=== PATIENT | female | born 1935 | race Caucasian/White ===

== ENCOUNTER 2016-09-27 15:21 | Inpatient (IN) ==
--- NOTE | 2016-09-27 15:39 | Diag Imaging Result Doc PS360 ---
EXAM: HEAD W/O CONTRAST HISTORY: brain attack protocol TECHNIQUE: CT of the head without contrast COMMENT: There is abnormal lucency in the cortex and subcortical white matter around the anterior operculum and posterior frontal lobe on the left. This extends into the insular region both in the cortex and external capsule. No evidence of bleed or abnormal extra-axial fluid collection is present. There is some hyperechoic density of branches of the middle cerebral artery in the sylvian fissure on the left. 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 Electronically signed by Perfecto Rios 09/27/2016 3:37 PM
[2016-09-27] MEDS ORDERED: NS 1,000 ML ONE (15:47)
[2016-09-27] MEDS: NS 1,000 ML IV PRN ×2 (16:00→18:12)
--- NOTE | 2016-09-27 16:04 | Diag Imaging Result Doc PS360 ---
EXAM: CHEST-PORTABLE HISTORY: stroke like symptoms TECHNIQUE: Portable upright at 1600 COMMENT: There is apparent atelectasis in the right lower lobe which was not present on 07/10/2014. Otherwise considering differences in technique there is been no significant change. IMPRESSION: Right lower lobe subsegmental atelectasis. Electronically signed by Perfecto Rios 09/27/2016 4:02 PM
[2016-09-27 16:25] LABS: BASO% 0.1 % (0.0-0.8); EOS# 0.01 X1000 (0.0-0.7); EOS% 0.1 % (0.0-10.0); HEMATOCRIT 44.3 % (37.0-47.0); HEMOGLOBIN 15.2 g/dL (12.0-16.0); LYMPH# 1.14 X1000 (1.2-3.4); LYMPH% 9.6 % (20.5-51.1); MANUAL DIFF NEEDED? NO; MCH 30.5 PG (27-31); MCHC 34.3 g/dL (33-37); MONO# 0.45 X1000 (0.11-0.59); MONO% 3.8 % (1.7-9.3); MPV 10.7 FL (7.4-10.4); NEUT% 86.4 % (42.2-75.2); PLT 302 X1000 (130-400); RBC 4.98 XMIL (4.2-5.4)
--- NOTE | 2016-09-27 16:27 | EKG Report ---
Test Performed on : 09/27/2016 3:43:27 PM Test Reason : Stroke like symptoms Blood Pressure : / mmHG Vent. Rate : 077 BPM Atrial Rate : 000 BPM P-R Int : 000 ms QRS Dur : 058 ms QT Int : 400 ms P-R-T Axes : 000 060 054 degrees QTc Int : 452 ms Atrial fibrillation. with premature ventricular or aberrantly conducted complexes. Septal infarct , age undetermined Abnormal ECG When compared with ECG of 04-MAY-2010 12:19, Atrial fibrillation. has replaced Sinus rhythm. Septal infarct is now present Unconfirmed Result
[2016-09-27 16:36] LABS: AGAP 14; ALBUMIN 4.4 g/dL (3.5-5.0); ALKALINE PHOSPHATASE 102 U/L (32-104); BUN 13 mg/dL (8-22); CALCIUM 9.5 mg/dL (8.8-10.2); CHLORIDE 99 mmol/L (98-107); COSMO 282; GOT 31 U/L (10-30); GPT 31 U/L (10-36); POTASSIUM 3.7 mmol/L (3.5-5.1); SODIUM 140 mmol/L (136-145); TCO2 27 mmol/L (25-35); TOTAL BILIRUBIN 0.77 mg/dL (0.20-1.00); TOTAL PROTEIN 7.9 g/dL (6.3-8.3)
[2016-09-27 16:37] LABS: INR 1.04; PTT 28.5 Seconds (22.0-36.0)
--- NOTE | 2016-09-27 17:11 | PROVIDER DOCUMENTATION ---
This chart was entered by Devante Kirk Scribe, acting as scribe for Laura Hoover MD. HPI-Neurological Disorder - General Stated Complaint: stoke like sx Time Seen by Provider: 09/27/16 15:30 Source: family Unable to obtain history due to:: urgency Allergies/Adverse Reactions: Patient Allergies Allergy/AdvReac Type Severity Reaction Status Date / Time Latex, Natural Rubber Allergy Unknown Verified 09/27/16 17:05 shellfish derived Allergy ANAPHYLAXIS Verified 09/27/16 17:05 shrimp Allergy ANAPHYLAXIS Verified 09/27/16 17:05 Sulfa (Sulfonamide Allergy Unknown Verified 09/27/16 17:05 Antibiotics) - History of Present Illness-Neuro Nature of Presenting Problem: patient is a 81 yo F that presents with stroke like symptoms. Onset unknown. last known time she was normal was 330pm yesterday. patient has right sided facial droop, right sided weakness, and is aphasic. patient hasn't had recent injury. history limited due to condition and urgency Severity: reports: severe Onset/Duration: reports: unsure, this morning Timing: reports: still present, constant Context: reports: impaired speech, paresthesia, facial droop Character of Altered Mental Status: reports: N/A Any recent trauma/injury?: reports: none Character of Deficits: reports: new weakness, impaired speech New weakness or altered sensation location:: reports: LUE, LLE, left facial Cognitive Baseline: alert, oriented x3 Gait Baseline: walks without assistance Associated Symptoms: reports: paresthesia, slurred speech, weakness. denies: headache, insomnia, nausea, trouble walking, vomiting Similar Symptoms Previously?: No Recently seen or treated by another doctor?: No Review of Systems - Adult - REVIEW OF SYSTEMS - ADULT Constitutional: denies: chills, fever Eyes: denies: decreased vision, blurred vision, double vision Ears, Nose, Mouth & Throat: denies: ear pain, sinus problem, throat pain, throat swelling Cardiovascular: denies: chest pain, edema, palpitations, syncope Respiratory: denies: chronic cough, cough, shortness of breath, wheezing Gastrointestinal: denies: abdominal pain, nausea, vomiting Genitourinary: denies: dysuria, frequency, hematuria Musculoskeletal: denies: back pain, joint pain, neck pain Integumentary: reports: no symptoms reported Neurological: reports: numbness, paresthesia, slurred speech. denies: dizziness /vertigo, headache/migraines, syncope Psychiatric: reports: no symptoms reported Endocrine: reports: no symptoms reported Hematologic/Lymphatic: reports: no symptoms reported Allergic/Immunologic: reports: no symptoms reported All Other Systems: Reviewed and Negative Past History - Adult - PAST MEDICAL HISTORY-ADULT Review of Records: reports: Old Records Reviewed, Nursing Assessment Review, Medications Reviewed Cardiovascular: reports: HTN Endocrine/Immune: reports: thyroid disorder - PRIOR SURGERIES/PROCEDURES Surgical/Procedure History: reports: none - IMMUNIZATION STATUS Childhood Immunizations: See Nurse Assessment Flu Vaccine: See Nurse Assessment - FAMILY HISTORY Family History: reviewed, not pertinent - SOCIAL HISTORY Smoking: non-smoker Living Situation: family Physical Exam- Neurological - Physical Exam-Neuro Exam Limited by: condition Initial Vital Signs Reviewed: Yes General Appearance: alert, mild distress, moderate distress Eye Exam: bilateral eye: normal inspection, PERRL HENMT: normocephalic/atraumatic, moist mucous membranes, normal ENT inspection Head Injury: no evidence of injury. 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 negative: gaze palsy, tongue deviation to R, tongue deviation to L Motor/Sensory: pronator drift (R), weak motor strength RUE, weak motor strength RLE Neurologic: aphasia, facial droop, motor weakness (right sided) Integumentary: normal color, warm/dry Psych/Mental Status: normal mood/affect, normal thought content, normal thought process, oriented x 3 Progress - PLAN OF CARE/RESULTS Progress/Plan/Lab Results: Vital Signs - 8 hr 09/27/16 15:57 09/27/16 16:31 Pulse Rate 78 84 Respiratory Rate 12 22 Blood Pressure 134/110 167/133 O2 Sat by Pulse Oximetry 100 99 Laboratory Results - last 24 hr 09/27/16 09/27/16 09/27/16 16:00 16:00 16:00 WBC 11.92 H RBC 4.98 Hgb 15.2 Hct 44.3 MCV 89.0 MCH 30.5 MCHC 34.3 RDW Std Deviation 14.1 Plt Count 302 MPV 10.7 H Immature Gran % (Auto) 0.0 Neut % (Auto) 86.4 H Lymph % (Auto) 9.6 L Elbert % (Auto) 3.8 Eos % (Auto) 0.1 Baso % (Auto) 0.1 Immature Gran # (Auto) 0.00 Neut # (Auto) 10.31 H Lymph # (Auto) 1.14 L Elbert # (Auto) 0.45 Eos # (Auto) 0.01 Baso # (Auto) 0.01 PT 11.0 INR 1.04 PTT (Actin FS) 28.5 Sodium 140 Potassium 3.7 Chloride 99 Carbon Dioxide 27 Anion Gap 14 BUN 13 Creatinine 0.8 Estimated GFR/1.73 m2 > 60 BUN/Creatinine Ratio 16 Glucose 139 H Calculated Osmolality 282 Calcium 9.5 Total Bilirubin 0.77 AST 31 H ALT 31 Alkaline Phosphatase 102 Troponin T Total Protein 7.9 Albumin 4.4 Globulin 3.5 Albumin/Globulin Ratio 1.3 09/27/16 16:00 WBC RBC Hgb Hct MCV MCH MCHC RDW Std Deviation Plt Count MPV Immature Gran % (Auto) Neut % (Auto) Lymph % (Auto) Elbert % (Auto) Eos % (Auto) Baso % (Auto) Immature Gran # (Auto) Neut # (Auto) Lymph # (Auto) Elbert # (Auto) Eos # (Auto) Baso # (Auto) PT INR PTT (Actin FS) Sodium Potassium Chloride Carbon Dioxide Anion Gap BUN Creatinine Estimated GFR/1.73 m2 BUN/Creatinine Ratio Glucose Calculated Osmolality Calcium Total Bilirubin AST ALT Alkaline Phosphatase Troponin T < 0.010 Total Protein Albumin Globulin Albumin/Globulin Ratio Orders Category Date Time Status Cardiac Monitoring DIRECTED Care 09/27/16 15:46 Active Finger Stick Blood Sugar (ED) DIRECTED Care 09/27/16 15:46 Active Misc. NRSG Communication Order DIRECTED Care 09/27/16 15:46 Active Oxygen Therapy- ED Nursing DIRECTED Care 09/27/16 15:46 Active Resuscitation Status Routine Care 09/27/16 16:50 Ordered Saline Loc NOW Care 09/27/16 15:46 Active CHEST-PORTABLE [RAD] Stat Exams 09/27/16 15:46 Completed HEAD W/O CONTRAST [CT] Stat Exams 09/27/16 15:22 Completed CBC WITH ELECTRONIC DIFF [HEME] Stat Lab 09/27/16 16:00 Completed COMPREHENSIVE METABOLIC PANEL [CHEM] Stat Lab 09/27/16 16:00 Completed PROTIME WITH INR [COAG] Stat Lab 09/27/16 16:00 Completed PTT [COAG] Stat Lab 09/27/16 16:00 Completed TROPONIN T Stat Lab 09/27/16 16:00 Completed URINALYSIS W/POSS RFLX CULT-1 [URINALYSIS] Stat Lab 09/27/16 15:46 Uncollected URINE DRUG SCREEN Stat Lab 09/27/16 15:46 Uncollected 0.9% Sodium Chloride Inj [Ns] 1,000 ml Med 09/27/16 15:47 Discontinued .ROUTE As Directed 0.9% Sodium Chloride Inj [Ns] 1,000 ml Med 09/27/16 15:46 Active IV 125 mls/hr EKG [EKG] Stat Ther 09/27/16 15:46 Draft Transfer/Admit Order [TRANSFER] Routine Transfer 09/27/16 16:49 Ordered Vital Signs Pulse Resp BP Pulse Ox 09/27/16 16:31 84 22 167/133 99 09/27/16 15:57 78 12 134/110 100 Latex, Natural Rubber Allergy (Verified 09/27/16 17:05) Unknown shellfish derived Allergy (Verified 09/27/16 17:05) ANAPHYLAXIS shrimp Allergy (Verified 09/27/16 17:05) ANAPHYLAXIS Sulfa (Sulfonamide Antibiotics) Allergy (Verified 09/27/16 17:05) Unknown Laboratory 09/27/16 09/27/16 09/27/16 16:00 16:00 16:00 WBC RBC Hgb Hct MCV MCH MCHC RDW Std Deviation Plt Count MPV Immature Gran % (Auto) Neut % (Auto) Lymph % (Auto) Elbert % (Auto) Eos % (Auto) Baso % (Auto) Immature Gran # (Auto) Neut # (Auto) Lymph # (Auto) Elbert # (Auto) Eos # (Auto) Baso # (Auto) PT 11.0 INR 1.04 PTT (Actin FS) 28.5 Sodium 140 Potassium 3.7 Chloride 99 Carbon Dioxide 27 Anion Gap 14 BUN 13 Creatinine 0.8 Estimated GFR/1.73 m2 > 60 BUN/Creatinine Ratio 16 Glucose 139 H Calculated Osmolality 282 Calcium 9.5 Total Bilirubin 0.77 AST 31 H ALT 31 Alkaline Phosphatase 102 Troponin T < 0.010 Total Protein 7.9 Albumin 4.4 Globulin 3.5 Albumin/Globulin Ratio 1.3 09/27/16 16:00 WBC 11.92 H RBC 4.98 Hgb 15.2 Hct 44.3 MCV 89.0 MCH 30.5 MCHC 34.3 RDW Std Deviation 14.1 Plt Count 302 MPV 10.7 H Immature Gran % (Auto) 0.0 Neut % (Auto) 86.4 H Lymph % (Auto) 9.6 L Elbert % (Auto) 3.8 Eos % (Auto) 0.1 Baso % (Auto) 0.1 Immature Gran # (Auto) 0.00 Neut # (Auto) 10.31 H Lymph # (Auto) 1.14 L Elbert # (Auto) 0.45 Eos # (Auto) 0.01 Baso # (Auto) 0.01 PT INR PTT (Actin FS) Sodium Potassium Chloride Carbon Dioxide Anion Gap BUN Creatinine Estimated GFR/1.73 m2 BUN/Creatinine Ratio Glucose Calculated Osmolality Calcium Total Bilirubin AST ALT Alkaline Phosphatase Troponin T Total Protein Albumin Globulin Albumin/Globulin Ratio Result Diagrams: 09/27/16 16:00 09/27/16 16:00 - EKG 1 Time of EKG reading by physician:: 15:46 EKG Read and Signed by:: Laura Hoover EKG Interpretation (*Must complete 3 of following elements*): Abnormal Rate: 77 Rhythm: a-fib with pvcs QRS: normal ST Wave: non-specific ST changes Prior EKG Comparison: changes noted - CT/MRI 1 CT Study: Head Impression: Abnormal CT Results: acute infarct in the distribution of l middle cerebral artery - CONSULTS/PCP/HOSPITALIST Notification #1 *Consult/PCP/Hospitalist*: Time Discussed: 16:48 Reason/Comments: CVA Consult Disposition: Will see in ED, Admit Departure - Departure Date of Disposition Decision: 09/27/16 Time of Disposition Decision: 16:49 DIAGNOSIS: New onset a-fib CVA (cerebral vascular accident) Qualifiers: CVA mechanism: unspecified Qualified Code(s): I63.9 - Cerebral infarction, unspecified Disposition: ADMITTED INPATIENT 09 Certified Medical Emergency: Emergent Condition: Stable - Critical Care Note This patient required my direct & personal management of CC.: Yes Total Time (mins): 40 Critical Care Statement: This patient required my direct personal management to treat or rule out processes, the absence of which, could potentiallly result in sudden, clinically significant life or limb threatening deterioration. Attestation - Physician/ FELICIA Attestation The physician spent face to face time with patient:: Yes Advanced Practice Provider documentation review:: Supervising physician onsite and consulted in the evaluation and care of this patient. The physician did have a face to face encounter with the patient. This chart was documented by the indicated scribe, (Devante Kirk, Scribe) and accurately reflects the services I performed and decisions made by me, Laura Hoover MD, as attested by the provider's signature.
[2016-09-27] MEDS ORDERED: APRESOLINE IV PRN (17:12)
--- NOTE | 2016-09-27 17:25 | HISTORY AND PHYSICAL ---
PAST MEDICAL HISTORY: Ms. Mckeon is an 81-year-old with a past medical history of: 1. Hypothyroidism. 2. Irritable bowel syndrome. 3. Hypertension. 4. History of pneumonia in the past. 5. Sinusitis. 6. Essential tremor. 7. Fatigue. 8. Hypercholesterolemia. 9. Myalgias. 10. Malignant neoplasm of the right breast. SURGICAL HISTORY: 1. Status post hysterectomy. 2. Breast biopsy. Fibrocystic breast changes, tenderness and mastitis. 3. Endarterectomy in 1984. 4. Right breast neoplasm. Lumpectomy done 04/23/2010. SOCIAL HISTORY: Born in [place], [place]. She has lived in [place] and [place] most of her life. She is a with 3 children, 1 son and 2 daughters. Denies any history of alcohol or tobacco use. FAMILY HISTORY: Father at age 85 from myocardial infarction. Mother at age 86 from coronary artery disease and CVA. Family history of hypertension and heart problems. HEALTH HISTORY: Had a colonoscopy, I think the last one was 2013. Bone density in 03/03/10. Mammogram 2013. Pap smear 2008. Hysterectomy, chest x-ray done in 2010. REVIEW OF SYSTEMS: General: She is unable to give, but the family says not noticing weight gain or loss. HEENT: Unremarkable. Respiratory: No increased work of breathing or dyspnea. Cardiovascular: No chest pain or tachy palpitation. GI: Unremarkable. : Unremarkable. Musculoskeletal/Neurologic: Had not noted any complaints. DISCUSSION: The story is that she usually gets up and makes a cup of coffee. They had noticed that the coffee was spilled. She was in a recliner and she was unable to communicate very well and so some time this morning I guess is when this event happened. She was brought here to the emergency room where she had right facial weakness, right shoulder, right upper and lower extremity weakness as well, about a 3/5 in the arm and maybe 3/5 in the leg. Her speech, she could formulate words, but it was slow and sometimes hard to understand. She seemed to have good understanding of what you are saying. She said she could swallow okay. Denied any pain. DIAGNOSTICS: On monitor EKG showed she is in atrial fibrillation with rate controlled. I did not see any ST-segment elevation or depression. Looking back, she had a nuclear bone scan back in 2014 which had increased in the right hip. Otherwise unremarkable. She had a bone densitometry in 08/05/2014, abnormal bone density measured in each hip T-score of -2.4. The right hip -1.5. I guess her T-score was -2.4. She did not fall. No history of head trauma. She had a CT of her head done without contrast: Acute infarct in distribution of left middle cerebral artery. Abnormal lucency in the cortex and the subcortical white matter around the anterior operculum and posterior frontal lobe on the left. This extends to the insular region, both in the cortex and the external capsule. No evidence of bleed or abnormal extra-axial fluid collection is present. Her chest x-ray, right lower lobe submental atelectasis. Her laboratory, white count 11,920, hematocrit 44, platelet count 302,000. Chemistry: Sodium 140, potassium 3.7, chloride 99, bicarb 27, BUN 13, creatinine 0.8, calcium 9.5, AST 31, ALT was 31. ASSESSMENT AND PLAN: 1. 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 It sounds like we may be getting some improvement. We will watch her blood pressures. Now is not the time to lower pressure too much, so we will try to keep her blood pressures above 150 systolic. We will make sure she is on aspirin and consider adding Plavix and get more of a history. We will check noninvasive carotid studies and echocardiogram. Put her on a monitor. She is in atrial fibrillation so I do want check an echocardiogram and look for mural thrombus. She may end up having an transesophageal echo. We will ask Cardiology to get involved. 2. Essential tremor. Aware. 3. History of hypothyroidism, check T4 and TSH. 4. Irritable bowel syndrome. 5. Hypertension. 6. Hypercholesterolemia. 7. She has had a previous endarterectomy in 1984. 8. History of breast neoplasm. Lumpectomy done on 05/01. She is status post hysterectomy. cc: Mir Heath MD
[2016-09-27] MEDS: CARDIZEM PO SCH ×2 (18:31→22:54)
[2016-09-27] MEDS: ASPIRIN PO SCH (18:31)
--- NOTE | 2016-09-27 18:51 | Diag Imaging Result Doc PS360 ---
EXAM: HIP 1 VIEW RIGHT HISTORY: bruising, ? fall, cva TECHNIQUE: AP portable at 1825 COMMENT: There is severe erosive arthritis which has worsened since the previous study of 07/25/2014. There is baav-ax-dyog contact, sob subchondral cyst formation and some lateral subluxation of the femoral head with respect to the acetabulum. IMPRESSION: Severe erosive osteoarthritis. Electronically signed by Perfecto Rios 09/27/2016 6:49 PM
[2016-09-27] MEDS ORDERED: LIPITOR PO SCH (21:00)
[2016-09-27 21:49] LABS: URINE MICRO REVIEW NEEDED? NO; URINE SOURCE CLEAN CATCH
[2016-09-27 21:53] LABS: BILIRUBIN URINE NEGATIVE (NEGATIVE); BLOOD URINE NEGATIVE (NEGATIVE); COLOR YELLOW; GLUCOSE URINE NEGATIVE (NEGATIVE); LEUKOCYTES URINE TRACE (NEGATIVE); NITRITE URINE NEGATIVE (NEGATIVE); PROTEIN URINE NEGATIVE (NEGATIVE); TURBIDITY URINE CLEAR (CLEAR); UR EPITHELIAL CELLS <10 /HPF (<10); URINE BACTERIA NEGATIVE /HPF; URINE CULTURE NEEDED? YES; URINE RBC <10 /HPF (<10); URINE WBC <10 /HPF (<10); UROBILINOGEN URINE NORMAL (NORMAL)
[2016-09-27 22:02] LABS: UR AMPHETAMINES QUAL NONE DETECTED (NONE DETECT); UR BARBITUATES QUAL NONE DETECTED (NONE DETECT); UR BENZODIAZEPIN QUAL NONE DETECTED (NONE DETECT); UR CANNABINOIDS QUAL NONE DETECTED (NONE DETECT); UR COCAINE QUAL NONE DETECTED (NONE DETECT); UR METHADONE QUAL NONE DETECTED (NONE DETECT); UR OPIATES QUAL NONE DETECTED (NONE DETECT); UR OXYCODONE QUAL NONE DETECTED (NONE DETECT); UR PCP QUAL NONE DETECTED (NONE DETECT)
[2016-09-28] MEDS: CARDIZEM PO SCH (06:13)
[2016-09-28] MEDS ORDERED: PLAVIX PO SCH (09:15)
--- NOTE | 2016-09-28 09:36 | PROGRESS NOTE ---
DATE: 09/28/2016 SUBJECTIVE: Mr. Mckeon had an uneventful night. Speech, she is not able to communicate words. She does appear to have understanding of what you are saying to her. 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 Left leg is weak. She does not appear to be in any distress or pain. Remains afebrile. PHYSICAL EXAMINATION: Vital Signs: Temperature 97.6 degrees, pulse 68, respirations 20, blood pressure today was 98/60 so we have had 98-159/60. I am going to stop her Cardizem and Apresoline. Lungs: Are clear in all lung roberts. Cardiovascular Examination: Regular rhythm and rate without murmur or S3. Abdomen: Soft. Skin: Is warm and dry. Is and Os: Urine output 1100 mL. LAB: White count 11,920, hematocrit 44, platelet count 302,000. Sodium 140, potassium 3.7, chloride 99, BUN 13, creatinine 0.8, blood sugar 182 and 139. ASSESSMENT AND PLAN: 1. Left-sided cortical cerebrovascular accident. We found a left 100% carotid. I have discussed with the vascular surgery. Not sure if there is anything surgical that can be offered at this point because it is 100%. Also at this point, not sure what anticoagulant. We will see what Dr. Isbell suggests. We will continue the aspirin. 2. Essential tremor. 3. History of hypothyroidism. 4. Irritable bowel syndrome. 5. Hypertension. 6. Hypercholesterolemia. 7. She has had endarterectomy in 1984 on the right side. We need to tolerate a little higher systolic blood pressure. I am going to stop her Cardizem. We are going to begin physical therapy and speech therapy. Continue fluids at the present time at 125 an hour. cc: Mir Heath MD
[2016-09-28] MEDS: ASPIRIN PO SCH (10:11)
--- NOTE | 2016-09-28 11:40 | Diag Imaging Result Doc PS360 ---
EXAM: HEAD W/O CONTRAST TECHNIQUE: Dose reduction protocol was used. INDICATION: stroke like event COMPARISON: 09/27/2016 FINDINGS: There is a known acute infarct involving the left frontal lobe. It has expectedly become more conspicuous and well-defined since yesterday's study. There is mild sulcal effacement surrounding the infarct related to edema. There is no hydrocephalus and there is no evidence of midline shift, ventricular effacement, or cisternal effacement. During the interval, the right MCA has become hyperdense. Although there are no new parenchymal changes on the right, this is suspicious for acute thrombus in the right MCA causing a right MCA distribution hyperacute infarct that is not yet detectable by CT. There is no discrete intracranial mass, mass effect, or intracranial hemorrhage. The surrounding soft tissues and bony structures are essentially unremarkable. IMPRESSION: 1.Interval evolution of the known left frontal lobe acute infarct. 2.Interval development of a hyperdense right MCA. This is concerning for a hyperacute right MCA distribution infarct with no detectable parenchymal changes by CT as of yet. The findings were discussed with Jaz Brasher MD at 09/28/2016 11:25 AM. Electronically signed by Naun Arroyo 09/28/2016 11:38 AM
--- NOTE | 2016-09-28 11:45 | CONSULTATION ---
DATE OF CONSULTATION: 09/28/2016 REASON FOR CONSULTATION: Complete occlusion of left carotid artery. HISTORY OF PRESENT ILLNESS: This is an 81-year-old female with past medical history of hypothyroidism, irritable bowel, hypertension, essential tremor, fatigue, hypercholesterolemia, myalgia, right breast cancer, who is status post carotid endarterectomy on the right side in 1984, now presenting with stroke-like symptoms. She was admitted and had a CT scan that confirmed that she had stroke-like symptoms and CT showed a stroke on the left side. She did have a carotid ultrasound done this morning that showed a complete occlusion on the left side. I was asked to evaluate the patient for this carotid disease. The patient is nonverbal, so we got most of her medical history from previously dictated notes including the one dictated by Dr. Heath on 09/27/2016. PAST MEDICAL HISTORY: Hypothyroidism, irritable bowel, hypertension, history of pneumonia, sinusitis, essential tremor, fatigue, hypercholesterolemia, myalgias, malignant neoplasm of the right breast. PAST SURGICAL HISTORY: Previous hysterectomy, breast biopsy, carotid endarterectomy and right breast lumpectomy. FAMILY HISTORY: Positive for heart attack and stroke. SOCIAL HISTORY: Denies alcohol, tobacco or illicit drugs. MEDICATIONS: Current MAR reviewed. ALLERGIES: Latex, shellfish, shrimp. REVIEW OF SYSTEMS: Unable to obtain secondary to the patient's mental status. PHYSICAL EXAMINATION: Vital signs: The patient is currently afebrile. Her vital signs are stable. General: No acute distress but a nonverbal female who looks stated age. HEENT: Normocephalic, although she has some right-sided facial droop. Oropharynx benign. Neck supple. Trachea midline. Cardiovascular: Irregularly irregular, consistent with atrial fibrillation. Lungs: Clear. Abdomen: Soft, nontender and nondistended. Extremities: She is able to move the left side. I do not see much movement on the right side. Neurologic: As stated above. Deficits noted on the right side. Vascular: Lower extremities perfused. Skin: No signs of jaundice. DIAGNOSTIC DATA: Reviewed from yesterday. Carotid ultrasound reviewed with mechanical design technician. 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 1. Multiple medical comorbidities, at this time being managed by the Hospitalist Service. 2. New onset of atrial fibrillation. At this time there is a discussion between Cardiology, hospitalist and Neurology about the best anticoagulation method and strategy given her atrial fibrillation. I will defer to them for those discussions. 3. Left-sided stroke secondary to 100% occluded left carotid artery. At this time, since it is 100% occluded, I cannot do anything surgically and recommend continued medical management and watch. She is a patient of Dr. Rivera. I recommend having her follow up with Dr. Rivera in the near future once she is discharged. This was all discussed with the family. cc: MD Mir Meyers MD
--- NOTE | 2016-09-28 12:25 | PROGRESS NOTE ---
DATE: 09/28/2016 SUBJECTIVE: Ms. Mckeon started having nausea and became less responsive with agonal breathing, noticed the right pupil was about 3 mm, the left pupil was down to 1 mm. Both were very sluggishly reactive, unresponsive, she does respond to some pain. She had a CT scan, and it indicated distant to the left cortical, she had right mid carotid clot and so suspect she has had a right-sided CVA as well. OBJECTIVE: Blood pressure was 142/101, pulse 116, respirations 25. Lungs: She was having trouble with agonal breathing. Her tongue was sticking out of her mouth. ASSESSMENT AND PLAN: I have told the family this is a very ominous change of events and she has extended her infarct and that prognosis is very poor. They want comfort measures. We will pursue that. She will be no code level 1. Fluids going at 125 mL an hour. cc: Mir Heath MD
[2016-09-28] MEDS: NS 1,000 ML IV PRN ×2 (12:28→20:04)
--- NOTE | 2016-09-28 14:27 | CONSULTATION ---
DATE OF CONSULTATION: 09/28/2016 REQUESTING PHYSICIAN: Mir Heath MD REASON FOR CONSULTATION: Atrial fibrillation, stroke. HISTORY OF PRESENT ILLNESS: This patient is an 81-year-old female who was brought to the hospital by her family on 09/27/2016. Apparently, she was found at home being unable to communicate fully. They suspected upon initial encounter that she had had a stroke and was brought immediately to the ER. In the ER, they did standard testing including CT scan of the head that showed initially an abnormality consistent with acute infarct in the distribution of the left middle cerebral artery. The patient at that time received an EKG that showed atrial fibrillation with no acute ischemic changes. The patient was admitted to the hospital for further observation. A carotid ultrasound was done early in the morning today, around 7 o'clock. The study shows what appears to be acute occlusion of the left internal carotid artery. The patient was being examined in the room by our ICING MACHINE OPERATOR and the neurologist, and the patient developed acute changes in mental status, became unresponsive. They have repeated the CT scan of the head at 11 a.m. and that study shows a hyperdense right middle cerebral artery concerning for hyperacute right middle cerebral artery infarct in addition to a left frontal lobe acute infarct. The patient at this time is unresponsive. Family is at the bedside. According to family, she has no prior history of atrial fibrillation or any major heart disease. PAST HISTORY: Positive for hypothyroidism, irritable bowel syndrome, hypertension, essential tremors, hyperlipidemia, and breast cancer. PAST SURGICAL HISTORY: She had carotid endarterectomy on the right side in 1984, lumpectomy in 2010, and hysterectomy. SOCIAL HISTORY: She is . She is retired. She has 3 grown-up children. Lives by herself. Not a smoker and not a drinker. FAMILY HISTORY: Father had myocardial infarction. Mother had a stroke, at the age of 86. ALLERGIES: She is allergic to latex, shellfish, shrimp, and sulfa drugs. HOME MEDICATIONS: Include aspirin 81, calcium carbonate 1 tablet daily, amlodipine 5 daily, metoprolol 25 twice a day, meloxicam 15 mg daily, levothyroxine 75 mcg daily. REVIEW OF SYSTEMS: At this time, not obtainable. The patient is really comatose at this point. PHYSICAL EXAMINATION: VITAL SIGNS: Blood pressure 142/101, temperature 97.4, pulse 116, respirations 25. GENERAL: She is unresponsive. NECK: Diminished pulses in the carotid vessels. Jugular veins do not appear to be distended. CHEST: Shows symmetrical breath sounds. No rales. HEART: Sounds are irregularly irregular. No gallop or murmur is noted. ABDOMEN: Nontender, soft. No masses or hepatomegaly. EXTREMITIES: Palpable pulses. No peripheral edema. NEUROLOGIC: She is unresponsive. She moves intermittently the right leg. No other obtainable findings. She is really unresponsive. LABORATORY: White count is 11,920. PT and PTT normal. Sodium 140, potassium 3.7, BUN 13, creatinine 0.8. Troponin is less than 0.10 and has been checked only once. Her lipid panel: HDL 53, LDL 87, total cholesterol 144, triglycerides 50. IMPRESSIONS: 1. Patient who presents with acute left middle cerebral artery infarct. While still in the process of being evaluated for this infarct, she has developed apparently a second infarct, this time on the right side, according to the CT scan of the head performed at 11 o'clock this morning. This probably corresponds to multiple cerebral emboli arising from atrial fibrillation. 2. Atrial fibrillation with controlled ventricular response. 3. History of hypertension. 4. 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 RECOMMENDATIONS: At this point in time, the patient's situation is very critical. We will focus our care on controlling her heart rate with beta eric and digoxin. Because of the acute stroke, we cannot fully anticoagulate the patient. Her prognosis at this point, if, indeed, we confirm that she has suffered a contralateral stroke, is really dismal. The patient may have to pursue comfort care and hospice type of services since the chances for recuperation will be minimal. Will follow her along. Thank you for the opportunity to participate in her evaluation. I may want to do a limited carotid ultrasound to document acute occlusion of the right side also. cc: MD Mir Lira MD
[2016-09-28] MEDS: OFIRMEV 1000 MG/ISOTONIC SOLN 1,000 MG/100 ML BOTTLE IV PRN (14:41)
--- NOTE | 2016-09-28 15:46 | CONSULTATION ---
DATE OF CONSULTATION: 09/28/2016 REASON FOR CONSULTATION: The patient is seen in consultation at the request of Dr. Heath for evaluation of stroke. HISTORY OF PRESENT ILLNESS: This is an 81-year-old, right-handed, female, history of hypertension, hyperlipidemia, breast cancer status post lumpectomy and radiation , admitted with acute left MCA ischemic stroke. The patient last seen or spoken to in a normal state was about 3 p.m. on Tuesday. Neighbor noted yesterday she had not opened blinds or gotten the paper, so she went to check on her and found her confused, unable to speak appropriately. There was a mess in the kitchen. She was taken to the emergency room. Head CT noted acute infarct in the distribution of the left MCA. The patient does apparently take an aspirin at home and has a history of a right carotid endarterectomy in the . No known heart disease. Since her admission there has been noted a new diagnosis of atrial fibrillation. Apparently, the preliminary read on the carotid Dopplers from Dr. Nair noted 100% blockage of the left carotid artery. The right carotid artery looked okay. Surgery had been consulted and there were no surgical plans given the 100% blockage. Cardiology has also been consulted for new onset atrial fibrillation and consideration for transesophageal echocardiogram. PAST MEDICAL HISTORY: Hypertension, hyperlipidemia, breast cancer, status post lumpectomy in 2010 with radiation and doing well, hypothyroidism, IBS, history of pneumonia, essential tremor, fatigue and myalgias, hysterectomy, endarterectomy in 1984 on the right side. SOCIAL HISTORY: The patient is active and lives alone. She drives. She has 3 children and is . No tobacco, alcohol, or illicit drugs. FAMILY HISTORY: Positive for stroke and heart disease. ALLERGIES: Latex, rubber, shellfish, shrimp, sulfa. REVIEW OF SYSTEMS: Is unable to assess due to the patient's aphasia. PHYSICAL EXAMINATION: General: Elderly female lying in bed, no acute distress. Family is at bedside. Vital Signs: Reviewed. Afebrile. Blood pressure 98/60, pulse 68, respirations 20. HEENT: Normocephalic, atraumatic. Sclerae anicteric. No erythema. Moist mucous membranes. Neck: Supple. Trachea midline. Cardiovascular: Intact distal pulses. No major edema. Atrial fibrillation on telemetry. Pulmonary: No increased work of breathing. Normal chest rise. Abdomen: Soft, nontender, nondistended. Extremities: Well perfused. Warm. No significant edema. Intact pedal pulses. Neurologic: Mental status: Awake and alert. Tracks. She does have at least expressive aphasia. She may be globally aphasic, though she was able to follow 1 command to keep her eyes closed but it was significantly delayed. She did not follow any other command. No naming or repeating. Could not test orientation. Cranial nerves: PERRL, 2.5 mm both eyes, reactive. Conjugate gaze. Ocular movements are full horizontally. There is a right facial droop even at rest. She cannot follow orders for some of the other testing. Motor exam: Decreased tone noted prominently in the right upper extremity. Normal bulk throughout. Right hemiparesis noted, right upper extremity greater than right lower extremity. Some right lower extremity spontaneous movement is noted. She has also been seen by others to use her left upper extremity to grab and move the right upper extremity. Sensory exam: There may be right hemisensory loss. Reflexes appear symmetric, 1+. Could not elicit knee or ankle jerks bilaterally. No clonus. Toes testing revealed excess withdrawal during this time. Coordination and gait were not tested. DIAGNOSTICS: Head CT 09/26/2016 was personally reviewed. It shows an acute infarct in the left MCA distribution. No hemorrhage. There has been atrial fibrillation noted on the telemetry. There has also been atrial fibrillation read from an EKG. Preliminary verbal report from surgery was that her carotid Doppler showed 100% occlusion of the left carotid artery. Labs were reviewed. Her white count is 11.9, platelets 302,000. INR 1, PT 11, PTT 28.5. Glucose 139. AST just elevated at 31. Otherwise chemistry panel was unremarkable. Total cholesterol 144, triglycerides 50, LDL 87, HDL 53. Urinalysis with 10 ketones, trace leukocytes. Toxicology screen was negative. ASSESSMENT AND PLAN: This is an 81-year-old, right-handed, female with dominant left middle cerebral artery distribution ischemic stroke, aphasic with a right facial droop and right hemiparesis in the setting of new onset atrial fibrillation and reported 100% occlusion of the left carotid artery. The concern here is for embolic stroke in the setting of this new onset atrial fibrillation. It is possible that she had an embolus to the left carotid artery in the setting of pre-existing atherosclerotic disease. We do not have prior carotid imaging unfortunately. I discussed with the family my recommendations for anticoagulation in this setting. Unfortunately, shortly after I left the room the patient became acutely unresponsive, eyes rolled back, face red. This was during the time that speech therapy was doing a swallow evaluation and had just done the oral evaluation but had not yet given the patient any fluid to drink. When I re -entered the room, the patient was unresponsive with snoring agonal respirations. Her pupils were equal, about 2.5 mm both eyes but sluggish. She had oculocephalics. There was some withdrawal to painful stimulation in all extremities. She went down for emergent head CT. I went down and reviewed it immediately with radiology. There was expected evolution of the left MCA infarct and no hemorrhage. Also no hydrocephalus, midline shift, ventricular or cisternal effacement. There was a newly developed dense right MCA sign since the prior head CT. This is concerning for 2nd embolic event, this time on the right with likely hyperacute right MCA infarct. Re-evaluation after the head CT showed irregular right pupil about 3.5 mm and no definite reaction. Left pupil 2 to 2.5 mm, very subtle reaction. Still some withdrawal to pain. At times the patient spontaneously was bending her right greater than left leg at the knee. Dr. Heath had a conversation with family, who has decided to pursue comfort measures. I went in and spoke with the family and they expressed this as well, stating that she would not want to be intubated. We will respect the family's wishes. cc: MD Mir Dyer MD MTDD
--- NOTE | 2016-09-28 22:29 | ECHO REPORT ---
ORDER DATE: 09/27/2016 MEASUREMENTS: Left ventricular end-diastolic diameter 4.2, end systolic diameter 2, septal thickness 0.8, posterior wall thickness 0.8, left atrium 5.6, aortic root 2.8. SUMMARY: 1. Fair quality study. 2. Mild fibrocalcific changes of aortic valve demonstrated with reduced aortic valve leaflet mobility. Peak gradient across the valve is 25 mmHg with a mean gradient of 13 mmHg. Calculated aortic valve area is 1.4 cm2. Mild aortic stenosis is suggested. Mild mitral annular calcification is demonstrated. There is mild mitral regurgitation. Tricuspid and pulmonic valves are without structural abnormality with moderate to severe tricuspid regurgitation and mild pulmonic insufficiency. The estimated systolic PA pressure by Doppler is 75-80 mmHg. Severe pulmonary hypertension is suggested. The aortic root is normal size. 3. Normal left ventricular dimensions demonstrated. Estimated left ventricular ejection fraction is greater than 70% with left ventricle appearing hyperdynamic. Basal septum did demonstrate sigmoid hypertrophy. Left atrium is moderately enlarged. Right atrium is [id number] enlarged. The right ventricle is mildly enlarged with preserved right ventricular systolic function. 4. No pericardial effusion. 5. Appearance of inferior vena cava suggests elevated central venous pressure. 6. Atrial fibrillation during the study. cc: MD Mir Georges MD
[2016-09-29] MEDS: MORPHINE IV PRN ×6 (00:21→22:34)
[2016-09-29] MEDS: NS 1,000 ML IV PRN (03:38)
[2016-09-29] MEDS ORDERED: NS 1,000 ML IV PRN (09:15)
--- NOTE | 2016-09-29 09:39 | PROGRESS NOTE ---
DATE: 09/29/2016 SUBJECTIVE: Ms. Mckeon is really unchanged. Respiratory rate has improved. It is around 10-12 at the present time. At times, it got up to 20-24. She appears in no distress. She is unresponsive and does not respond to sternal rub. Pupil right is pinpoint. I cannot see any reactivity. The left is about 2 and I do not see any reactivity there either. PHYSICAL EXAMINATION: Neck: No distended neck veins. Lungs: Clear in all lung roberts. General: Limbs are flaccid. Skin appears warm and dry. Vital Signs: Pulse between 80 and 90. Blood pressure 148/101. Lungs: Clear in all lung roberts. Cardiovascular Examination: Regular rhythm and rate without murmur or S3. Abdomen: Soft. Skin: Warm and dry. Is and Os: Good urine over 3 L. LABORATORY DATA: White count reviewed from yesterday. CBC and chemistries reviewed from yesterday. ASSESSMENT AND PLAN: She appears to have presented with a left cerebrovascular accident and extended with the right and unresponsive, extensive cerebrovascular accident suggested. She has a dominant middle cerebral artery distribution ischemic stroke, aphasic with right facial droop, right hemiparesis in the setting of new onset atrial fibrillation, 100% occlusion of the left carotid artery and appears to have extended it to a right infarct now. Family wants her a no code. We will pursue comfort measures. See if we can get her on inpatient hospice and move her to a private room. Prognosis is very poor. Note, CT of the head we repeated yesterday. Interval evolution, left frontal lobe acute infarct. Interval development of hypodense right middle cerebral artery. cc: Mir Heath MD
[2016-09-29] MEDS: OFIRMEV 1000 MG/ISOTONIC SOLN 1,000 MG/100 ML BOTTLE IV PRN (11:07)
--- NOTE | 2016-09-29 13:41 | PROGRESS NOTE ---
DATE: 09/29/2016 SUBJECTIVE: No major changes overnight. OBJECTIVE: Afebrile. Blood pressure 148/101, pulse 88, respirations 19. General: Elderly female, supine in bed. Obtunded. No family currently at bedside. Neck: Supple. Trachea midline. Cardiovascular: Tachycardic. Intact pulses. No major edema. Pulmonary: Gurgling respirations. Mental status: She is obtunded. Neurologic: Cranial nerves, pupils 2 mm OU, no reaction. Conjugate gaze. Horizontal eye movement with passive head turning, positive corneal's. No blink to threat. Motor/sensory/reflexes: No movement in the upper extremities to light noxious stimulus. No grimace. Triple flexion today in the bilateral lower extremities to light noxious stimulus. I could not elicit clonus. Extensor plantar responses bilaterally today. DIAGNOSTICS: I reviewed previous labs in the chart. ASSESSMENT: An 81-year-old right-handed female, with a dominant left MCA distribution ischemic stroke with aphasia, right facial droop and right hemiparesis now with interval development of dense right MCA sign on repeat head CT yesterday with concern for right MCA infarct in the setting of acute decompensation yesterday. This is all likely due to new onset atrial fibrillation and proximal embolic source. Per the records the family has moved the patient to comfort care and possibly inpatient hospice. There are orders for the patient to be transferred out of the ICU to a regular bed floor with comfort measures. No new suggestions. cc: MD Mir Dyer MD MTDD
[2016-09-30] MEDS: MORPHINE IV PRN ×2 (05:32→08:27)
[2016-09-30 07:04] VITALS: BP 180/118
[2016-09-30] MEDS ORDERED: ATROPINE 1% OPHTH SOLN SL PRN (07:30)
--- NOTE | 2016-09-30 09:37 | DISCHARGE SUMMARY ---
ADMISSION DATE: 09/27/2016 DISCHARGE DATE: SUMMARY: She presented after being found in her lounge chair. They figured that the event happened in the morning. She usually gets up to make her coffee and they found the coffee had been spilled, and she was in a recliner, but she was having trouble with her speech and appeared to have right-sided weakness, but she was dressed. They brought her to the emergency room where on exam she has had a left-sided CVA, most likely middle cerebral artery distribution, and it was a large cortical CVA on CT scan. Noninvasive showed a left 100% carotid stenosis but the right was patent. She seemed to show some signs of clinical improvement. Speech seemed to get a little better for a while. Her right-sided deficit seemed improved. The morning of 09/28/2016, she started having nausea. Blood pressures initially were in the 180-220 range systolic. She also was noted to be in atrial fibrillation which was new for her. She started having nausea and then became unresponsive with agonal respirations. Repeat CT scan showed that she now had a right- sided middle cerebral artery CVA and ominous prognosis. She had already been put on aspirin and Plavix. Family wanted to keep her comfortable. She was NO CODE STATUS 1, LEVEL 1. She continued to have agonal respirations, remained unresponsive even to pain, and the patient pronounced at 9:08 a.m. on 09/30/2016. cc: Mir Heath MD
--- NOTE | 2016-09-30 15:36 | Carotid Study ---
DATE: 09/27/2016 PROCEDURE: Bilateral duplex and color flow imaging of the carotid arteries was performed using the [email or web address] Vivid E9 ultrasound system with 9L-D transducer. REFERRING PHYSICIAN: Mir Heath MD. INTERPRETING PHYSICIAN: Omero Nair MD. TECH: Barnhart. INDICATIONS: CVA with right-sided numbness and weakness. OBSERVED DATA RIGHT LEFT Brachial Blood Pressure Carotid Pulse Bruits: Carotid/Sub DIAGRAM OF ULTRASOUND IMAGING R L RIGHT INT EXT INT EXT LEFT Sunday (cm/s) Sunday (cm/s) Subclavian 149/0 Subclavian 52/0 CCA Proximal 61/13 CCA Proximal 33/0 CCA Distal 69/19 CCA Distal 0/0 Bulb 90/26 Bulb 0/0 ICA Proximal 111/26 ICA Proximal 0/0 ICA Mid 98/30 ICA Mid 0/0 ICA Distal 104/38 ICA Distal 0/0 ECA 112/17 ECA 0/0 Vertebral 38/9 Vertebral 60/17 ICA/CCA Ratio 1.61 ICA/CCA Ratio 0 % Stenosis 0-39 % Stenosis 100 FINDINGS: Previous carotid endarterectomy noted on the right side with flow noted with calculated stenosis of 0% to 39%. On the left side, there appears to be 100% occlusion starting at the level of the distal common. There appears to be clot noted in the more proximal common, but no flow distally. PHYSICIAN INTERPRETATION: Complete occlusion of the left carotid artery system at the level of the distal common carotid. There appears to be a clot at the level of the proximal common. The right side at this time is status post carotid endarterectomy and has flow noted with stenosis measured at 0% to 39%. These findings were notified to Dr. Heath at 7:55 per the certified control systems technician notes. cc: MD Mir Meyers MD
--- NOTE | 2016-09-30 18:19 | Carotid Study ---
DATE: 09/28/2016 PROCEDURE: Right-sided duplex and color flow imaging of the carotid arteries was performed using the [employer] Vivid E9 ultrasound system with a 9-L/D transducer. COMPARISON: Comparison from earlier in the day of 09/28/2016. REFERRING PHYSICIAN: Dr. Ortiz. INTERPRETING PHYSICIAN: Dr. Nair TECH: Ariel. INDICATIONS: CVA status post Carotid Endarterectomy with abnormal CT scan that showed dense acute right MCA occlusion. OBSERVED DATA RIGHT LEFT Brachial Blood Pressure Carotid Pulse Bruits: Carotid/Sub DIAGRAM OF ULTRASOUND IMAGING R L RIGHT INT EXT INT EXT LEFT Sunday (cm/s) Sunday (cm/s) Subclavian Subclavian CCA Proximal 61/11 CCA Proximal CCA Distal 69/10 CCA Distal Bulb 86/10 Bulb ICA Proximal 88/0 ICA Proximal ICA Mid 76/0 ICA Mid ICA Distal 23/0 ICA Distal ECA 165/28 ECA Vertebral 50/10 Vertebral ICA/CCA Ratio 1.27 ICA/CCA Ratio % Stenosis % Stenosis Calculated stenosis by strict velocity criteria is 0-39%. FINDINGS: The right carotid artery is still patent but by waveform analysis there appears to be changes to suggest distal internal carotid artery occlusion. When compared to previous study, the waveforms have changed to suggest that this is an acute process in the distal internal carotid. PHYSICIAN INTERPRETATION: Likely acute distal internal carotid artery occlusion which is a change from earlier in the day when the study was previously performed. There is flow noted to the right internal carotid artery but, again, waveforms suggest a distal occlusion. Again , from the carotid artery ultrasound done earlier in the day, this is an acute change. cc: MD Mundo Meyers MD Allen J. Schmidt, MD [facility]
== END 2016-09-30 09:10 | disposition expired ==
LOC: ED 15:21 → 3S 17:16 → ICU 09-28 11:34
PROVIDERS: ADMIT Emergency Medicine; ATTEND Emergency Medicine